=== PATIENT | male | born 1955 | race Caucasian/White ===

== ENCOUNTER 2018-07-11 10:20 | Emergency (ER) | payer SELFPAY ==
[~2018-07-11] VITALS: Ht 182.9 cm; Wt 75.3 kg
[2018-07-11 10:32] VITALS: BP 97/65
== END 2018-07-11 11:42 | disposition home or self-care (01) ==
LOC: ED 11:36
DX: G89.29 Other chronic pain (principal); M79.671 Pain in right foot; M79.672 Pain in left foot; Z59.0 Homelessness
CPT/HCPCS: 99283